=== PATIENT | male | born 1995 ===

== ENCOUNTER 2021-04-20 15:18 | Emergency (ER) | payer SELFPAY ==
--- NOTE | 2021-04-20 16:12 | RAD REPORT ---
EXAM DESCRIPTION: CT - Stone Protocol - 04/20/2021 3:56 pm CLINICAL HISTORY: Flank pain. FLANK PAIN COMPARISON: No comparisons TECHNIQUE: Axial images were obtained without oral or IV contrast. Lack of contrast limits solid org an and vascular assessment. The [id number] spans the entirety of the system partially obscuring uppermost abdomen and lung bases. Coronal reformatted images were obtained and reviewed. All CT scans are performed using dose optimization technique as appropriate and may include automated exposure control or mA/KV adjustment according to patient size. FINDINGS: The lower lung mario are clear. Imaged portions of the liver and spleen show no suspicious findings on non-contrast imaging.Fatty kezia er is likely present. The pancreas and adrenal glands are normal. No pathologic lymphadenopathy in th e abdomen or pelvis. 3 mm calculus is present at the left UVJ resulting in mild left hydronephrosis. 3 mm stone is present inferior anterior calyx left kidney. No right-sided stone or hydronephrosis. No bowel obstruction, free air, free fluid or abscess. Normal appendix noted. No significant bony abnormality. IMPRESSION: 3 mm calculus is present at the left UVJ resulting in mild left hydronephrosis. Small stone is present inferior calyx left kidney.
[2021-04-20 17:26] LABS: Urine Blood 2+ (Negative); Urine Glucose Negative (Negative); Urine Protein Negative (Negative); Urine Specific Gravity 1.015 (1.005-1.030)
[2021-04-20] MEDS ORDERED: TAMSULOSIN 0.4 MG SR CAP ONE (17:54)
[2021-04-20] MEDS ORDERED: KETOROLAC 30 MG/ML INJ ONE (17:54)
--- NOTE | 2021-04-20 18:21 | ER ---
Nurse's Notes [facility] Name: Kilo Mei Age: 26 yrs Sex: Male : 1995 Arrival Date: 04/20/2021 Time: 15:25 Bed 12 Private MD: Diagnosis: Urinary calculus, unspecified Presentation: 04/20 15:33 Chief complaint: Patient states: L flank pain with nausea for 1 day. + sweating, pale. ll1 Coronavirus screen: Vaccine status: Patient reports receiving the 2nd dose of the covid vaccine. Client denies travel out of the [place] in the last 14 days. At this time, the client does not indicate any symptoms associated with coronavirus-19. Ebola Screen: Patient denies travel to an Ebola-affected area in the 21 days before illness onset. Initial Sepsis Screen: Does the patient meet any 2 criteria? No. Patient's initial sepsis screen is negative. Does the patient have a suspected source of infection? Yes: Other: flank pain. Risk Assessment: Do you want to hurt yourself or someone else? Patient reports no desire to harm self or others. Onset of symptoms was April 20, 2021. 15:33 Method Of Arrival: Wheelchair ll1 15:33 Acuity: SALLY 3 ll1 Historical: - Allergies: 15:34 No Known Allergies; ll1 - PMHx: 15:34 Hypertensive disorder; ll1 - PSHx: 15:34 None; ll1 - Immunization history:: Client reports receiving the 2nd dose of the Covid vaccine. - Social history:: Smoking status: Reported history of juuling and/or vaping. Patient denies any tobacco usage or history of. - Family history:: not pertinent. - Hospitalizations: : No recent hospitalization is reported. Screenin:51 Abuse screen: Denies threats or abuse. Nutritional screening: No deficits noted. vg1 Tuberculosis screening: No symptoms or risk factors identified. Fall Risk No fall in past 12 months (0 pts). No secondary diagnosis (0 pts). IV access (20 points). Ambulatory Aid- None/Bed Rest/Nurse Assist (0 pts). Gait- Normal/Bed Rest/Wheelchair (0 pts) Mental Status- Oriented to own ability (0 pts). Total Hennessy Fall Scale indicates No Risk (0-24 pts). Assessment: 17:15 General: Appears in no apparent distress. comfortable, Behavior is calm, cooperative. vg1 Pain: Complains of pain in left side of flank, LUQ, LLQ Pain currently is 5 out of 10 on a pain scale. Pain began 1 day ago. Neuro: Level of Consciousness is awake, alert, obeys commands, Oriented to person, place, time, situation. Cardiovascular: Patient's skin is warm and dry. Respiratory: Airway is patent Respiratory effort is even, unlabored. GI: Bowel sounds present X 4 quads. Abd is soft and non tender X 4 quads. : Denies burning with urination, blood in urine. EENT: No signs and/or symptoms were reported regarding the EENT system. Derm: Skin is intact, is healthy with good turgor. Musculoskeletal: Circulation, motion, and sensation intact. 17:55 Reassessment: Pt stated went to restroom and urine was 'clear, no blood and no pain'. vg1 18:38 Reassessment: Patient appears in no apparent distress at this time. Patient and/or vg1 family updated on plan of care and expected duration. Pain level reassessed. Patient is alert, oriented x 3, equal unlabored respirations, skin warm/dry/pink. Rated pain 1/10 Patient states feeling better. Vital Signs: 15:33 BP 165 / 94; Pulse 85; Resp 18; Temp 98.4; Pulse Ox 100% ; Weight 138.35 kg; Height 5 ll1 ft. 11 in. (180.34 cm); Pain 10/10; 17:30 BP 161 / 82; Pulse 95; Resp 16; Pulse Ox 100% ; vg1 18:35 BP 149 / 82; Pulse 76; Resp 16; Pulse Ox 100% ; vg1 15:33 Body Mass Index 42.54 (138.35 kg, 180.34 cm) ll1 ED Course: 15:25 Patient arrived in ED. jm9 15:34 Triage completed. ll1 15:35 Arm band placed on. ll1 15:56 CT Stone Protocol In Process Unspecified. EDMS 17:00 Patient placed in an exam room, on a stretcher. ll1 17:04 Sergei Small MD is Attending Physician. rn 17:13 Gianna Pineda RN is Primary Nurse. vg1 17:40 Missed attempt(s): 20 gauge in right antecubital area. vg1 17:49 Inserted saline lock: 20 gauge in left antecubital area, using aseptic technique. dh3 17:51 Patient has correct armband on for positive identification. Bed in low position. Call vg1 light in reach. Side rails up X 1. 18:38 No provider procedures requiring assistance completed. IV discontinued, intact, vg1 bleeding controlled, No redness/swelling at site. Pressure dressing applied. Administered Medications: 17:39 Drug: Flomax (tamsulosin) 0.4 mg Route: PO; vg1 18:40 Follow up: Response: Marked relief of symptoms vg1 17:55 Drug: Ketorolac 30 mg Route: IVP; Site: left antecubital; vg1 18:40 Follow up: Response: No adverse reaction; Marked relief of symptoms vg1 Outcome: 18:20 Discharge ordered by . rn 18:39 Discharged to home ambulatory. vg1 18:39 Condition: stable 18:39 Discharge instructions given to patient, Instructed on discharge instructions, follow up and referral plans. Demonstrated understanding of instructions, follow-up care. 18:40 Patient left the ED. vg1 Signatures: Dispatcher [employer] EDMS Sergei Small MD MD rn Herrera, Deanna 3 Gianna Pineda RN RN vg1 Trav Guerra RN RN 1 Shefali Shaikh9
--- NOTE | 2021-04-20 18:21 | EDPHYS ---
Physician Documentation [facility] Name: Kilo Mei Age: 26 yrs Sex: Male : 1995 Arrival Date: 04/20/2021 Time: 15:25 Bed 12 Private MD: ED Physician Sergei Small HPI: 04/20 18:15 This 26 yrs old Unknown Male presents to ER via Wheelchair with complaints of Low Back rn Pain, Abdominal Pain. 18:15 The patient presents with pain that is acute. The symptoms are located in the low back. rn The pain radiates to the abdomen. Onset: The symptoms/episode began/occurred just prior to arrival. Modifying factors: The patient symptoms are alleviated by nothing, the patient symptoms are aggravated by nothing. Associated signs and symptoms: Pertinent positives: dysuria, Pertinent negatives: fever, hematuria, urinary retention. Severity of symptoms: At their worst the symptoms were moderate, in the emergency department the symptoms have improved. The patient has not experienced similar symptoms in the past. The patient has not recently seen a physician. Reports sudden onset left flank pain that radiates to the left abdomen and groin, never has felt this before, no fever, no trauma. Now feels better since arrival here but pain is not resolved.. Historical: - Allergies: 15:34 No Known Allergies; ll1 - PMHx: 15:34 Hypertensive disorder; ll1 - PSHx: 15:34 None; ll1 - Immunization history:: Client reports receiving the 2nd dose of the Covid vaccine. - Social history:: Smoking status: Reported history of juuling and/or vaping. Patient denies any tobacco usage or history of. - Family history:: not pertinent. - Hospitalizations: : No recent hospitalization is reported. ROS: 18:15 Constitutional: Negative for fever, chills, and weight loss, Eyes: Negative for injury, rn pain, redness, and discharge, Neck: Negative for injury, pain, and swelling, Cardiovascular: Negative for chest pain, palpitations, and edema, Respiratory: Negative for shortness of breath, cough, wheezing, and pleuritic chest pain, Abdomen/GI: Positive for mild left lower quadrant abdominal pain Back: Positive for left flank pain : Positive for mild dysuria MS/Extremity: Negative for injury and deformity, Skin: Negative for injury, rash, and discoloration, Neuro: Negative for headache, weakness, numbness, tingling, and seizure. Exam: 18:15 Constitutional: This is a well developed, well nourished patient who is awake, alert, rn and in no acute distress. Head/Face: Normocephalic, atraumatic. Eyes: Periorbital areas with no swelling, redness, or edema. Cardiovascular: Regular rate and rhythm. No pulse deficits. Respiratory: No increased work of breathing, no retractions or nasal flaring. Abdomen/GI: Soft, nontender Skin: Warm, dry MS/ Extremity: Pulses equal, no cyanosis. Neuro: Awake and alert, GCS 15, ambulatory Vital Signs: 15:33 BP 165 / 94; Pulse 85; Resp 18; Temp 98.4; Pulse Ox 100% ; Weight 138.35 kg; Height 5 ll1 ft. 11 in. (180.34 cm); Pain 10/10; 17:30 BP 161 / 82; Pulse 95; Resp 16; Pulse Ox 100% ; vg1 18:35 BP 149 / 82; Pulse 76; Resp 16; Pulse Ox 100% ; vg1 15:33 Body Mass Index 42.54 (138.35 kg, 180.34 cm) ll1 MDM: 17:04 Patient medically screened. rn 18:15 Differential diagnosis: UTI, Ureterolithiasis, UTI. Data reviewed: vital signs, nurses rn notes, lab test result(s), radiologic studies, CT scan, and as a result, I will discharge patient. Counseling: I had a detailed discussion with the patient and/or guardian regarding: the historical points, exam findings, and any diagnostic results supporting the discharge/admit diagnosis, radiology results, the need for outpatient follow up, to return to the emergency department if symptoms worsen or persist or if there are any questions or concerns that arise at home. Response to treatment: the patient's symptoms have markedly improved after treatment, and as a result, I will discharge patient. Special discussion: I discussed with the patient/guardian in detail that at this point there is no indication for admission to the hospital. It is understood, however, that if the symptoms persist or worsen the patient needs to return immediately for re-evaluation. Based on the history and exam findings, there is no indication for further emergent testing or inpatient evaluation. I discussed with the patient/guardian the need to see the urologist for further evaluation of the symptoms. ED course: Patient markedly improved, ambulatory to bathroom states feels much better. Had a 3 mm left UVJ stone and pain controlled. Will DC home with return precautions.. 18:19 ED course: UA negative for UTI. rn 04/20 17:26 Order name: Urine Dipstick-Ancillary; Complete Time: 18:19 EDMS 04/20 15:42 Order name: CT Stone Protocol; Complete Time: 17:04 ll1 04/20 17:19 Order name: IV Start; Complete Time: 17:48 rn Administered Medications: 17:39 Drug: Flomax (tamsulosin) 0.4 mg Route: PO; vg1 18:40 Follow up: Response: Marked relief of symptoms vg1 17:55 Drug: Ketorolac 30 mg Route: IVP; Site: left antecubital; vg1 18:40 Follow up: Response: No adverse reaction; Marked relief of symptoms vg1 Disposition Summary: 04/20/21 18:20 Discharge Ordered Location: Home rn Problem: new rn Symptoms: have improved rn Condition: Stable rn Diagnosis - Urinary calculus, unspecified rn Followup: rn - With: Private Physician - When: As needed - Reason: Recheck today's complaints, Re-evaluation by your physician Discharge Instructions: - Discharge Summary Sheet rn - Kidney Stones rn - Renal Colic rn Forms: - Medication Reconciliation Form rn - Thank You Letter rn - Antibiotic cross tie turner - Prescription Opioid Use rn Signatures: Dispatcher [employer] Sergei Sullivan MD MD rn Garcia, Victoria RN RN vg1 Trav Guerra RN RN 1
[2021-04-20 18:46] VITALS: TEMP 98.4; O2SAT 100
[2021-04-20 18:49] VITALS: BP 149/82
== END 2021-04-20 18:40 | disposition home or self-care (01) ==
LOC: ER 15:18
DX: N20.9 Urinary calculus, unspecified (principal); I10 Essential (primary) hypertension
CPT/HCPCS: 74176; 76377; 81003; 96374; 99283